=== PATIENT | female | born 1965 ===

== ENCOUNTER 2017-11-28 12:50 | Emergency (ER) | payer OTHER ==
[2017-11-28 13:03] VITALS: BP 127/76; PULSE 71; RESP 16; TEMP 97; O2SAT 95
--- NOTE | 2017-11-28 13:40 | ED PDOC ---
HPI: Skin/Bite Injury Time Seen by Provider: 11/28/17 13:04 Chief Complaint (Nursing): Abnormal Skin Integrity Chief Complaint (Provider): pruritic rash on finger tips History Per: Patient History/Exam Limitations: no limitations Onset/Duration Of Symptoms: Days (21 days ago) Current Symptoms Are (Timing): Still Present Additional Complaint(s): 52 y/o female with a past medical history of Diabetes and Hypertension, presents to the ED complaining of having a pruritic rash on her finger tips of hands bilaterally, onset of 21 days. 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 Past Medical History Reviewed: Historical Data, Nursing Documentation, Vital Signs Vital Signs: Last Vital Signs Temp 97 F L 11/28/17 13:00 Pulse 71 11/28/17 13:00 Resp 16 11/28/17 13:00 BP 127/76 11/28/17 13:00 Pulse Ox 95 11/28/17 13:49 - Medical History PMH: Diabetes, HTN, Hypercholesterolemia - Surgical History Surgical History: No Surg Hx - Family History Family History: States: Unknown Family Hx - Social History Current smoker - smoking cessation education provided: No Ex-Smoker (has not smoked in the last 12 months): No Alcohol: None Drugs: Denies - Home Medications Home Medications: Ambulatory Orders Medication Instructions Recorded Famotidine [Pepcid] 20 mg PO BID #20 tab 10/28/14 Ondansetron [Zofran] 4 mg PO Q8H PRN #10 tab 10/28/14 Fluconazole [Diflucan] 150 mg PO ONCE #1 tab 11/28/15 Triamcinolone 0.1% [Triamcinolone 1 appl TP BID PRN #1 tube 11/28/17 0.1% Cream] - Allergies Allergies/Adverse Reactions: Allergies Allergy/AdvReac Type Severity Reaction Status Date / Time No Known Allergies Allergy Verified 11/28/15 15:20 Review of Systems ROS Statement: Except As Marked, All Systems Reviewed And Found Negative Constitutional: Negative for: Fever Musculoskeletal: Negative for: Hand Pain Skin: Positive for: Rash (pruritic rash on fingertips) Physical Exam - Reviewed Nursing Documentation Reviewed: Yes Vital Signs Reviewed: Yes - Physical Exam Skin: Positive for: Rash (mutiple skin fissures on finger tips of hands bilaterally; no erythema, no vessicles, no discharge;) Pulses-Radial (L): 2+ Pulses-Radial (R): 2+ Extremity: Positive for: Capillary Refill (less than 2 seconds) - ECG O2 Sat by Pulse Oximetry: 95 (RA) Pulse Ox Interpretation: Normal Medical Decision Making Medical Decision Making: Time: --13:39 Impression: --52 y/o female with dyshidrosis Plan: --Rx given Scribe Attestation: Documented by Sourav Voss acting as a scribe for PA. Sarah Disposition - Clinical Impression Clinical Impression: Dyshidrotic eczema - Patient ED Disposition Is Patient to be Admitted: No - Disposition Referrals: [facility] [Outside] Disposition: Routine/Home Disposition Time: 13:19 Condition: STABLE Prescriptions: Triamcinolone 0.1% [Triamcinolone 0.1% Cream] 1 appl TP BID PRN #1 tube PRN Reason: rash on hands Instructions: Dyshidrotic Eczema (ED) Forms: [employer] (Citizen [place]) Print Language: ARMENIAN
== END 2017-11-28 13:41 | disposition home or self-care (01) ==
LOC: H.ER 12:50
DX: L30.1 Dyshidrosis [pompholyx] (principal); E11.9 Type 2 diabetes mellitus without complications; E78.00 Pure hypercholesterolemia, unspecified; I10 Essential (primary) hypertension; Z87.891 Personal history of nicotine dependence

== ENCOUNTER 2017-12-09 05:58 | Emergency (ER) | payer OTHER, SELFPAY ==
[2017-12-09 06:16] VITALS: RESP 18; TEMP 98.3
[2017-12-09] MEDS ORDERED: Promethazine 12.5 mg/10 ml Syrup PO STA (06:51)
[2017-12-09] MEDS ORDERED: Promethazine 6.25 MG/5 ML CUP ONE (06:56)
--- NOTE | 2017-12-09 07:09 | ED PDOC ---
HPI: General Adult Time Seen by Provider: 12/09/17 06:51 Chief Complaint (Nursing): Cough, Cold, Congestion Chief Complaint (Provider): Cough History Per: Patient History/Exam Limitations: no limitations Onset/Duration Of Symptoms: Days (3 days) Current Symptoms Are (Timing): Still Present Additional Complaint(s): 52 y/o female with a history of Diabetes and Hypertension, presents to the ED complaining of sore throat and cough, onset of 3 days. Patient reports cough is productive of white sputum and has kept her up all night, prompting ED visit. Patient denies any fevers or chills. Past Medical History Reviewed: Historical Data, Nursing Documentation, Vital Signs Vital Signs: Last Vital Signs Temp 98.3 F 12/09/17 06:13 Pulse 80 12/09/17 06:13 Resp 18 12/09/17 06:13 BP 175/98 H 12/09/17 06:13 Pulse Ox 96 12/09/17 07:16 - Medical History PMH: Diabetes, HTN, Hypercholesterolemia - Surgical History Surgical History: Cholecystectomy - Family History Family History: States: Unknown Family Hx - Social History Current smoker - smoking cessation education provided: No Ex-Smoker (has not smoked in the last 12 months): No Alcohol: None Drugs: Denies - Home Medications Home Medications: Ambulatory Orders Medication Instructions Recorded Famotidine [Pepcid] 20 mg PO BID #20 tab 10/28/14 Ondansetron [Zofran] 4 mg PO Q8H PRN #10 tab 10/28/14 Fluconazole [Diflucan] 150 mg PO ONCE #1 tab 11/28/15 Triamcinolone 0.1% [Triamcinolone 1 appl TP BID PRN #1 tube 11/28/17 0.1% Cream] - Allergies Allergies/Adverse Reactions: Allergies Allergy/AdvReac Type Severity Reaction Status Date / Time No Known Allergies Allergy Verified 11/28/15 15:20 Review of Systems ROS Statement: Except As Marked, All Systems Reviewed And Found Negative Constitutional: Negative for: Fever, Chills ENT: Positive for: Throat Pain (sore throat) Respiratory: Positive for: Cough (productive of white phlegm) Physical Exam - Reviewed Nursing Documentation Reviewed: Yes Vital Signs Reviewed: Yes - Physical Exam Appears: Positive for: Non-toxic, No Acute Distress Head Exam: Positive for: ATRAUMATIC, NORMOCEPHALIC Skin: Positive for: Normal Color, Warm Eye Exam: Positive for: Normal appearance, EOMI, PERRL ENT: Positive for: Normal ENT Inspection Neck: Positive for: Normal, Painless ROM, Supple Cardiovascular/Chest: Positive for: Regular Rate, Rhythm. Negative for: Murmur Respiratory: Positive for: Normal Breath Sounds. Negative for: Respiratory Distress Gastrointestinal/Abdominal: Positive for: Normal Exam, Soft. Negative for: Tenderness Back: Positive for: Normal Inspection Extremity: Positive for: Normal ROM. Negative for: Pedal Edema, Deformity Neurologic/Psych: Positive for: Alert, Oriented. Negative for: Motor/Sensory Deficits - ECG O2 Sat by Pulse Oximetry: 96 (RA) Pulse Ox Interpretation: Normal Medical Decision Making Medical Decision Making: Time: --06:51 Impression: --URI vs. Influenza Plan: --chest xray --Ibuprofen 600mg PO --Promethazine 12.5 mg PO --Influenza A B --Rapid Strep Group Reassess --07:00 --Patient to be signed out to Dr. Destiny Murray pending Chest X-ray and rapid strep. Scribe Attestation: Documented by Sourav Voss acting as a scribe for Tyler Dominique MD. Disposition - Clinical Impression Clinical Impression: Cough - Patient ED Disposition Is Patient to be Admitted: Transfer of Care Discussed With : Destiny Murray Doctor Will See Patient In The: ED - Disposition Disposition: Transfer of Care Disposition Time: 07:00 Condition: FAIR Forms: [employer] (Kyrgyz) Patient Signed Over To: Destiny Murray
--- NOTE | 2017-12-09 07:57 | ED PDOC ---
- ECG O2 Sat by Pulse Oximetry: 96 (RA) Medical Decision Making Medical Decision Makin:00 Patient signed out to the provider by Dr. Tyler Dominique pending chest x-ray. Reassess -- Scribe Attestation: Documented by Sourav Voss acting as a scribe for Destiny Murray MD. 8:45a - rapid strep pos; flu negative; chest xray is normal. Disposition Doctor Will See Patient In The: Office Counseled Patient/Family Regarding: Diagnosis, Need For Followup, Rx Given - Clinical Impression Clinical Impression: Strep pharyngitis - POA Present On Arrival: None - Disposition Disposition: Routine/Home Disposition Time: 09:01 Condition: FAIR Additional Instructions: Followup with your primary care doctor. Prescriptions: Naproxen [Naprosyn] 500 mg PO BID PRN #20 tablet PRN Reason: Pain, Moderate (4-7) Penicillin VK [Penicillin VK Tab] 500 mg PO BID #20 tab Promethazine DM [Phenergan DM Syrup] 10 ml PO Q8H PRN #120 ml PRN Reason: Cough Instructions: Strep Throat (ED) Forms: [employer] (Polish)
[2017-12-09 09:46] VITALS: BP 151/79; PULSE 76; O2SAT 97
--- NOTE | 2017-12-09 12:34 | RAD ---
HISTORY: r/o PNA COMPARISON: No prior. TECHNIQUE: Chest PA and lateral FINDINGS: LUNGS: No active pulmonary disease. PLEURA: No significant pleural effusion identified. No pneumothorax apparent. CARDIOVASCULAR: Normal. OSSEOUS STRUCTURES: No significant abnormalities. VISUALIZED UPPER ABDOMEN: Incidental surgical clips are seen the right upper quadrant abdomen. OTHER FINDINGS: None. IMPRESSION: No acute cardiopulmonary disease appreciated.
== END 2017-12-09 09:30 | disposition home or self-care (01) ==
LOC: H.ER 05:58
DX: J02.0 Streptococcal pharyngitis (principal); R05 Cough; I10 Essential (primary) hypertension; E11.9 Type 2 diabetes mellitus without complications